=== PATIENT | male | born 1995 | race Caucasian/White ===

== ENCOUNTER 2016-10-09 12:27 | Emergency (ER) | payer BC ==
[2016-10-09 12:43] VITALS: TEMP 97.9
--- NOTE | 2016-10-09 13:22 | EDPHY ---
H & P Time Seen by Provider: 10/09/16 12:53 HPI/ROS: CHIEF COMPLAINT: right foot pain HISTORY OF PRESENT ILLNESS: 21-year-old otherwise healthy male presents emergency department complaining of right foot pain. Patient reports a large approximately 100 lb rock fell onto his right foot from 3 feet above. Patient was wearing converse canvas shoes. He reports pain and swelling. He has been unable to bear weight due to pain since. He denies numbness or tingling in his foot, denies other complaints. No previous injury to this foot. Smoking Status: Current every day smoker Physical Exam: GEN: Awake, alert, oriented, no acute distress RESP: nl resp effort MSK: Right foot with swelling and ecchymosis to dorsal midfoot, no tenderness to MTP joints, no tenderness to base of 5th metatarsal, no tenderness to Achilles or calcaneus. Tenderness with lateral squeeze and tenderness to palpation to for 2nd and 3rd proximal metatarsal. Sensation intact to light touch, 2+ pedal SKIN: Small superficial abrasion to dorsal foot Constitutional: Initial Vital Signs Temperature (C) 36.6 C 10/09/16 12:40 Heart Rate 93 10/09/16 12:40 Respiratory Rate 17 10/09/16 12:40 Blood Pressure 148/83 H 10/09/16 12:40 O2 Sat (%) 94 10/09/16 12:40 O2 Delivery Mode Room Air Allergies/Adverse Reactions: No Known Allergies Allergy (Unverified 10/09/16 12:39) Home Medications: Medication Instructions Recorded Hydrocodone/APAP 5/325 [[place] 1 tab PO Q4H PRN #7 tab 10/09/16 5/325] MDM/Departure - MDM Diagnostics: Right foot x-ray independently reviewed by me Impression: No fracture identified. Dictated By: Leonardo Lara MD - Depart Disposition: Home, Routine, Self-Care Clinical Impression: Contusion of right foot Qualifiers: Encounter type: initial encounter Qualified Code(s): S90.31XA - Contusion of right foot, initial encounter Condition: Good Instructions: Foot Contusion (ED) Additional Instructions: Rest, ice, elevate, take 600mg of ibuprofen every 8 hours with food for 3-5 days as needed for pain and swelling. Take [place] for severe pain. Wear walking boot, use crutches for ambulation. Follow up with the superintendent greens or orthopedist at 1st available appointment, call Tuesday to schedule this. Return to the emergency department for any numbness, tingling, discoloration of you limb or other concerns. Prescriptions: Hydrocodone/APAP 5/325 [[place] 5/325] 1 tab PO Q4H PRN #7 tab PRN Reason: Pain, Moderate Referrals: Reji Quesada DPM [Doctor of Podiatric Medicine] - As per Instructions ( Metallurgical Tester on-call) Aleks Reyes MD [Medical Doctor] - As per Instructions (Orthopedist sales professional)
[2016-10-09 14:26] VITALS: BP 142/76; PULSE 73; RESP 15; O2SAT 98
== END 2016-10-09 14:26 | disposition home or self-care (01) ==
DX: S90.31XA Contusion of right foot, initial encounter (principal); F17.200 Nicotine dependence, unspecified, uncomplicated; W20.8XXA Other cause of strike by thrown, projected or falling object, initial encounter
CPT/HCPCS: L4386